=== PATIENT | male | born 2000 | race Caucasian/White ===

== ENCOUNTER 2020-12-28 13:38 | Emergency (ER) ==
[2020-12-28 14:12] LABS: #Eosinphils 0.1 thou/uL (0.0-0.7); #Lymphocytes 2.3 thou/uL (1.20-3.40); #Monocytes 0.4 thou/uL (0.11-0.59); #Neutrophils 3.7 thou/uL (1.40-6.50); %Basophils 0.6 % (0.0-1.0); %Eosinophils 1.6 % (0.0-10.0); %Lymphocytes 35.3 % (21.0-51.0); %Monocytes 6.3 % (0.0-10.0); %Neutrophils 56.2 % (42.0-75.0); Hemoglobin 14.9 g/dL (14.0-18.0); Mean Corpuscular HGB CONC 33.3 g/dL (32.0-36.0); Mean Corpuscular Hemoglobin 29.8 pg (27.0-31.0); Mean Corpuscular Volume 89.3 fL (78.0-98.0); Mean Platelet Volume 8.1 fL (7.4-10.4); Platelet Count 167 thou/uL (130-400); RBC Distribution Width 12.2 % (11.5-14.5); White Blood Cell (WBC) Count 6.6 thou/uL (4.8-10.8)
[2020-12-28 14:36] LABS: ALT (SGPT) 20 U/L (8-55); AST (SGOT) 22 U/L (5-34); Albumin 4.5 g/dL (3.5-5.0); Alkaline Phosphatase 70 U/L (40-110); Anion Gap 14 mmol/L (10-20); BUN (Urea Nitrogen) 18 mg/dL (8.9-20.6); Bilirubin, Total 0.7 mg/dL (0.2-1.2); Calc. Creatinine Clearance 0 mL/min (70-130); Calcium 9.6 mg/dL (7.8-10.44); Carbon Dioxide 27 mmol/L (22-29); Chloride 100 mmol/L (98-107); Globulin 2.9 g/dL (2.4-3.5); Glucose 133 mg/dL (70-105); Lipase 45 U/L (8-78); Potassium 3.8 mmol/L (3.5-5.1); Protein, Total 7.4 g/dL (6.0-8.3); Sodium 137 mmol/L (136-145)
[2020-12-28] MEDS ORDERED: Acetaminophen 325 MG/10.15 ML UDCUP ONE ×2 (15:39→15:40)
== END 2020-12-28 15:50 | disposition home or self-care (01) ==
LOC: ERS 13:38
DX: J93.83 Other pneumothorax (principal)
CPT/HCPCS: 36415; 71045; 80053; 83690; 84484; 85025; 93005

== ENCOUNTER 2021-01-01 14:52 | Outpatient (CLI) | payer OTHER | END 2021-01-01 14:53 | disposition home or self-care (01) | LOC: BICRAD 14:52 | PROVIDERS: ATTEND Thoracic Surgery (Cardiothoracic Vascular Surgery) | DX: J93.9 Pneumothorax, unspecified (principal) | CPT/HCPCS: 71046 ==

== ENCOUNTER 2021-04-23 | Inpatient (IN) | payer OTHER | END 2021-04-25 12:00 | disposition home or self-care (01) | DRG 168 | PROVIDERS: ADMIT Thoracic Surgery (Cardiothoracic Vascular Surgery) | PROC: 0BBL4ZX Excision of Left Lung, Percutaneous Endoscopic Approach, Diagnostic (ICD-10-PCS; principal; 2021-04-23) ==

== ENCOUNTER 2021-04-29 00:44 | Emergency (ER) | payer OTHER | END 2021-04-29 02:31 | disposition home or self-care (01) | LOC: ERS 00:44 | DX: R07.9 Chest pain, unspecified (principal); R06.02 Shortness of breath; Z87.09 Personal history of other diseases of the respiratory system | CPT/HCPCS: 71045; 93005 ==